=== PATIENT | male | born 1955 | race Caucasian/White ===

== ENCOUNTER 2017-03-10 08:10 | Emergency (ER) | payer OTHER ==
[2017-03-10 10:43] LABS: BASOPHIL % 0.4 % (0-2); PLATELET COUNT 167 x10^3mcL (130-400); RED CELL DISTRIBUTION WIDTH 13.3 % (11.5-14.5)
[2017-03-10 11:14] LABS: microscopic required? YES; urine erythrocyte TRACE (NEGATIVE)
[2017-03-10 11:40] LABS: AMPHETAMINE QUAL UR NONE DETECTED (NEG <=1000)
[2017-03-10 14:05] LABS: CARBON DIOXIDE 24 mmol/L (21-32); CHLORIDE SERUM 99 mmol/L (98-107); GLUCOSE SERUM 96 mg/dL (74-106); POTASSIUM SERUM 3.2 mmol/L (3.5-5.1); SODIUM SERUM 137 mmol/L (136-145)
[2017-03-10 14:06] LABS: ALBUMIN 3.8 g/dL (3.4-5.0); ALKALINE PHOSPHATASE 47 U/L (46-116); ALT/SGPT 44 U/L (16-63); AMYLASE 88 U/L (25-115); AST/SGOT 51 U/L (15-37); BILIRUBIN TOTAL 0.84 mg/dL (0.20-1.00); CALCIUM 8.3 mg/dL (8.5-10.1); CREATININE SERUM 1.4 mg/dL (0.7-1.3); GFR1 55 mL/min; LIPASE 195 IU/L (73-393)
[2017-03-10 14:07] LABS: MAGNESIUM 1.9 mg/dL (1.8-2.4)
[2017-03-10 14:12] LABS: FREE T4 1.1 ng/dL (0.76-1.46); FREE THYROXINE INDEX 2.6 ug/dL (1.4-4.5)
[2017-03-10 14:25] LABS: T3 TOTAL 0.91 ng/mL
== END 2017-03-10 11:55 | disposition home or self-care (01) ==
LOC: ED 08:10
PROVIDERS: Emergency Medicine
DX: R41.0 Disorientation, unspecified (principal); R53.1 Weakness; I10 Essential (primary) hypertension; F32.9 Major depressive disorder, single episode, unspecified
CPT/HCPCS: 36415; 83880; 84439; G0480; Q0092